=== PATIENT | male | born 1950 | race Caucasian/White ===

== ENCOUNTER → 2017-04-03 | Outpatient (CLI) | payer MEDICARE, BC ==
[~2017-04-03] MED LIST: ACETAMINOPHEN650 M3 PO; ANTACID650 MG PO; BACTRIM DS TABL1 TA1 PO; BAYER ASPIRIN325 M1 PO; CELEBREX PO; CLEOCIN HCL300 M1 PO; COREG12.5 MG PO; FERRO-TIME325 MG PO; FOLIC ACID PO; FOLIC ACID1 MG PO; HUMIRA40 MG/0.1 SQ; HYDRALAZINE HCL50 MG PO; K-DUR20 ME2 PO; KEFLEX500 MG PO; LASIX PO; LASIX80 MG PO; LEFLUNOMIDE10 MG PO; LEVOTHYROXINE25 MC1 PO; LEVOTHYROXINE25 MCG PO; LISINOPRIL20 MG PO; LOVASTATIN20 M2 PO; LOVASTATIN20 MG PO; METHOTREXATE2.5 MG PO; NORCO 5/325 TAB1 TAB PO; PAIN RELIEVER325 M1 PO; PREDNISONE PO; PRILOSEC40 MG PO; TREXALL5 MG PO; ZESTRIL40 MG PO; ZYVOX600 MG PO
--- NOTE | ~2017-04-03 | EKG ---
PATIENT: ROMA BURNS UNIT #: [id number] Ventricular Rate: 47 BPM Atrial Rate: 47 BPM P-R Interval: 196 ms QRS Duration: 74 ms Q-T Interval: 424 ms QTC Calculation(Bezet): 375 ms P [place]: 37 degrees Calculated R [place]: -10 degrees Calculated T [place]: 25 degrees Diagnosis Line: Marked sinus bradycardia Diagnosis Line: Cannot rule out Inferior infarct , age Diagnosis Line: undetermined Diagnosis Line: Otherwise normal ECG Diagnosis Line: When compared with ECG of 28-APR-2015 09:43, Diagnosis Line: Inferior infarct is now Present Diagnosis Line: Confirmed by JIMENEZ LEYVA MD ([id number]) on 04/06/2017 Diagnosis Line: 3:58:40 PM INTERPRETING MD: AUTUMN DUDLEY
[2017-04-03 11:29] LABS: HEMATOCRIT 41.2 % (38.0-50.0); HEMOGLOBIN 13.5 gm/dL (13.0-16.0); MEAN CELL VOLUME 86.4 FL (83-96); MEAN CORPUSCULAR HEMOGLOBIN 28.3 PG (28-34); MEAN CORPUSCULAR HGB CONC 32.8 g/dL (30-36); MEAN PLATELET VOLUME 8.4 FL (6.5-11.5); RED BLOOD COUNT 4.77 X10e (3.90-5.60); RED CELL DISTRIBUTION WIDTH 15.6 % (11.0-15.5); WHITE BLOOD COUNT 8.8 X10e3 (4.0-10.5)
[2017-04-03 12:22] LABS: BUN/CREATININE RATIO 23.88; CALCIUM SERUM 8.8 mg/dL (8.4-10.2); CREATININE SERUM 1.8 mg/dL (0.6-1.4); GLOM FILT RATE Estimated 38.6 mL/min (>60); POTASSIUM 4.7 mmol/L (3.5-5.1)
== END | disposition home or self-care (01) ==
LOC: CEKG 11:05
PROVIDERS: Urology
DX: R31.9 Hematuria, unspecified (principal)
CPT/HCPCS: 36415; 80048; 85027; 93005

== ENCOUNTER 2017-04-18 19:34 | Emergency (ER) | payer MEDICARE, BC ==
[2017-04-18 23:50] LABS: URINE SOURCE CLEAN CATCH
[2017-04-19 00:01] LABS: URINE APPEARANCE CLOUDY; URINE BLOOD 3+ (NEG); URINE COLOR DK YELLOW; URINE GLUCOSE NEG (NEG); URINE KETONE NEG (NEG); URINE LEUKOCYTE ESTERASE TRACE (NEG); URINE NITRATE POS (NEG); URINE PH 5.5 (5-8); URINE PROTEIN 3+ (NEG); URINE SPECIFIC GRAVITY 1.011 (1.003-1.035)
[2017-04-19 00:06] LABS: CULTURE INDICATED? YES; URBCS1 AUWI INNUM /[HPF] (0-2); URINE BACTERIA AUWI NEG (NEGATIVE); URINE SQUAMOUS EPITHELIAL CELL NONE SEEN /[HPF]
[2017-04-19 00:09] LABS: URINE BILIRUBIN NEG (NEG)
[2017-04-19 02:22] LABS: BASOPHIL% 0.2 % (0-2.5); HEMATOCRIT 39.5 % (38.0-50.0); HEMOGLOBIN 12.8 gm/dL (13.0-16.0); LYMPHOCYTE# 1.5 X10e3 (1.0-3.5); LYMPHOCYTE% 11.5 % (17.0-45.0); MEAN CELL VOLUME 85.8 FL (83-96); MEAN CORPUSCULAR HEMOGLOBIN 27.9 PG (28-34); MEAN CORPUSCULAR HGB CONC 32.5 g/dL (30-36); MEAN PLATELET VOLUME 8.9 FL (6.5-11.5); MONOCYTE# 0.7 X10e3 (0-1.0); MONOCYTE% 5.4 % (3.0-12.0); NEUTROPHIL# 10.5 X10e3 (1.5-7.1); NEUTROPHIL% 82.9 % (40-75); PLATELET COUNT 146 X10e3 (140-420); RED BLOOD COUNT 4.61 X10e (3.90-5.60); RED CELL DISTRIBUTION WIDTH 15.7 % (11.0-15.5); WHITE BLOOD COUNT 12.6 X10e3 (4.0-10.5)
[2017-04-19 02:26] LABS: DIFF IND NO
[2017-04-19 02:45] LABS: CALCIUM SERUM 8.5 mg/dL (8.4-10.2); POTASSIUM 5.1 mmol/L (3.5-5.1)
== END 2017-04-19 04:40 | disposition home or self-care (01) ==
LOC: CED 19:34
PROVIDERS: Emergency Medicine
DX: R33.9 Retention of urine, unspecified (principal); E78.5 Hyperlipidemia, unspecified; I12.9 Hypertensive chronic kidney disease with stage 1 through stage 4 chronic kidney disease, or unspecified chronic kidney disease; N18.9 Chronic kidney disease, unspecified; Z79.899 Other long term (current) drug therapy
CPT/HCPCS: 36415; 51702; 80048; 81003; 85025; 87086; 96374; 96375; 99284; J2270; J2405